=== PATIENT | female | born 1975 | race Caucasian/White ===

== ENCOUNTER → 2016-11-24 | Outpatient (CLI) | payer OTHER ==
[~2016-11-24] MED LIST: SYNTHROID0.088 MG PO
[2016-11-24 14:45] LABS: BUN 11 mg/dL (7-18)
[2016-11-24 14:50] LABS: GFR (ESTIMATED) 110 ML/MIN (59-)
== END ==
LOC: CARL-LAB 10:54
PROVIDERS: Nurse Practitioner Family
DX: E78.2 Mixed hyperlipidemia (principal); E03.9 Hypothyroidism, unspecified